=== PATIENT | male | born 2000 | race Caucasian/White ===

== ENCOUNTER 2022-11-21 21:22 | Emergency (ER) | payer BC, SELFPAY ==
--- NOTE | ~2022-11-21 | XR_ITS ---
EXAMINATION: XR chest 1V portable DATE: 11/21/2022 22:05 INDICATION: Dyspnea. Presyncope TECHNIQUE: frontal and lateral views of the chest were obtained. COMPARISON: None FINDINGS: The lungs are clear with no focal airspace opacities, pulmonary edema, pleural effusion or pneumothor ax. The cardiomediastinal silhouette is normal. Visualized bones and soft tissues are unremarkable. IMPRESSION: 1. Normal chest radiograph. Reviewed, dictated and finalized at location A. IMPRESSION: 1. Normal chest radiograph.
[2022-11-21 21:27] VITALS: BP 124/68; PULSE 65; RESP 15; TEMP 36.6; O2SAT 100
[2022-11-21 21:35] VITALS: PULSE 59
--- NOTE | 2022-11-21 21:36 | ECG_ITS ---
Measurements Intervals [place] Rate: 57 P: 73 [place]: 156 QRS: 83 QRSD: 102 T: 70 QT: 387 QTc: 377 Interpretive Statements SINUS BRADYCARDIA WITH MARKED SINUS ARRHYTHMIA NO PREVIOUS ECG AVAILABLE FOR COMPARISON Electronically Signed On 11-22-2022 8:32:10 CDT by Claire Albrecht M.D.
--- NOTE | 2022-11-21 21:36 | ED.SYNCOPE ---
HPI - Syncope General Chief Complaint: Syncope <Christina Payan PA-C - Last Filed: 11/21/22 23:48> Stated Complaint: syncope <Christina Payan PA-C - Last Filed: 11/21/22 23:48> Time Seen by Provider: 11/21/22 21:26 <Christina Payan PA-C - Last Filed: 11/21/22 23:48> History of Present Illness HPI narrative: 22-year-old male reports via EMS for evaluation of a presyncopal episode that occurred prior to arrival. Patient states he was at the [place] [employer] and was approaching the ticket larry to place a bat. States at this time he became lightheaded and his vision went black. States he fell back and was caught by a bystander who lowered him to the floor. Patient reports he did not fully lose consciousness and remembers the entire event. States he saw black for approximately 10 seconds and got his vision back, then tried to stand up and saw black again. Again, he states he did not fully lose consciousness and was aware of the entire event. He denies hitting his head. He states this is never happened to him before. He denies chest pain, nausea or vomiting, diarrhea, abdominal pain, neck pain, back pain or headache, pain anywhere. He states at times it feels like he has to catch his breath, denies cough or congestion. Patient states it was loud in the arena when the episode occurred. He does report decreased water intake the past few days. <Christina Payan PA-C - Last Filed: 11/21/22 23:48> 22-year-old male reports via EMS for evaluation of a presyncopal episode that occurred prior to arrival. Patient states he was [place] the horse [employer] and was approaching the ticket [place] to place a bat. States at this time he became lightheaded and his vision went black. States he fell back and was caught by a bystander who lowered him to the floor. Patient reports he did not fully lose consciousness and remembers the entire event. States he saw black for approximately 10 seconds and got his vision back, then tried to stand up and saw black again. Again, he states he did not fully lose consciousness and was aware of the entire event. He denies hitting his head. He states this is never happened to him before. He denies chest pain, nausea or vomiting, diarrhea, abdominal pain, neck pain, back pain or headache, pain anywhere. He states at times it feels like he has to catch his breath, and he does state that he has had flu like symptoms over the last few days with increased congestion. Patient states it was loud in the arena when the episode occurred. He does report decreased water intake the past few days. <Ro Madrigal MD - Last Filed: 11/22/22 00:12> Related Data Allergies/Adverse Reactions: Allergies Allergy/AdvReac Type Severity Reaction Status Date / Time amoxicillin Allergy Other Verified 11/21/22 21:25 <Christina Payan PA-C - Last Filed: 11/21/22 23:48> Review of Systems Review of Systems: CONSTITUTIONAL: Denies fever, chills EYES: Denies visual changes, redness, or discharge. ENT: Denies rhinorrhea, congestion, sore throat, or otalgia. CARDIOVASCULAR: Denies chest pain, palpitations, or edema. RESPIRATORY: Denies cough or dyspnea. GASTROINTESTINAL: Denies abdominal pain, nausea, vomiting, or diarrhea. GENITOURINARY: Denies dysuria or hematuria. SKIN: Denies rash or itching. MUSCULOSKELETAL: Denies back pain, joint pain, or myalgia. NEUROLOGIC: Denies headache, numbness, dizziness, or weakness. PSYCHIATRIC: Denies anxiety or depression. <Christina Payan PA-C - Last Filed: 11/21/22 23:48> Exam Narrative: GENERAL: Well-appearing, in no acute distress. Patient resting comfortably in exam bed. He is was not conversational. HEAD: Normocephalic EYES: PERRLA, EOMI ENT: Nares clear. Mucous membranes moist. Oropharynx without tonsillar hypertrophy exudate or other lesions. NECK: Supple. CHEST: No respiratory distress. Clear to auscultation, no adventitious breath sounds. HEART: Regular rate a
[2022-11-21 21:47] VITALS: BP 90/42; PULSE 57
[2022-11-21 21:48] VITALS: BP 102/63; PULSE 71
[2022-11-21 21:49] VITALS: BP 96/69; PULSE 72
[2022-11-21] MEDS: SODIUM CHLORIDE 0.9% IV 1,000 ML 999 ML IV CONT (21:51)
[2022-11-21 21:57] LABS: Basophils Percent Auto 0.4 % (0.2-1.2); Eosinophils Absolute Auto 0.1 K/mm3 (0-0.3); Eosinophils Percent Auto 1.5 % (0-4.4); Hematocrit 37.6 % (42.0-52.0); Hemoglobin 13.1 g/dL (14.0-18.0); Immature Granulocyte Absolute 0.02 K/mm3 (0.00-0.031); Immature Granulocyte Percent A 0.3 % (0-0.5); Lymphocytes Absolute Auto 2.62 K/mm3 (0.9-3.2); Lymphocytes Percent Auto 36.7 % (18.3-44.2); Mean Corpuscular HGB Conc 34.8 g/dl (32-36); Mean Corpuscular Hemoglobin 30.4 pg (26-34); Mean Corpuscular Volume 87.2 fl (80-100); Mean Platelet Volume 9.2 fl (7.4-10.4); Monocytes Absolute Auto 0.5 K/mm3 (0.1-0.6); Monocytes Percent Auto 6.9 % (2.6-8.5); Neutrophils Absolute Auto 3.9 K/mm3 (1.3-6.7); Neutrophils Percent Auto 54.2 % (45.5-73.1); Platelet Count Result 216 k/mm3 (150-375); Red Blood Count 4.31 M/mm3 (4.6-6.20); Red Cell Distribution Width 12.1 % (11.5-14.5); White Blood Count 7.1 K/mm3 (4.5-10.0)
[2022-11-21 22:12] LABS: Alanine Aminotransferase 20 U/L (6-50); Albumin Level 3.9 g/dL (3.5-5.1); Alkaline Phosphatase 40 U/L (38-126); Anion Gap 6 mmol/L (8-16); Aspartate Amino Transferase 30 U/L (17-59); Bilirubin,Total 0.9 mg/dL (0.2-1.3); Blood Urea Nitrogen 17 mg/dL (9-20); Calcium 8.6 mg/dL (8.4-10.2); Carbon Dioxide 24 mmol/L (22-30); Chloride 101 mmol/L (98-107); Estimated CRCL calculation 136 ml/min; Estimated Glomerular Filt Rate > 60; Glucose 140 mg/dL (65-110); Potassium 3.8 mmol/L (3.4-5.0); Sodium 131 mmol/L (137-145)
[2022-11-21 22:30] VITALS: BP 106/56; PULSE 59; RESP 14; O2SAT 100
[2022-11-21 23:29] LABS: Appearance Urine Clear (Clear); Bilirubin Urine Negative (Negative); Blood Urine Negative (Negative); Color Urine Yellow (Yellow); Glucose Urine UA Negative (Negative); Ketones Urine Negative (Negative); Leukocyte Esterase Ur Negative LEU/UL (Negative); Nitrate Urine Negative (Negative); Protein Urine Negative (Negative); pH Urine 6.5 (5.0-9.0)
[2022-11-21 23:58] LABS: Add Urine Microscopic? NO
[2022-11-22] MEDS: SODIUM CHLORIDE 0.9% IV 1,000 ML 999 ML IV CONT
[2022-11-22 00:30] VITALS: BP 104/78; PULSE 60; RESP 14; O2SAT 100
[2022-11-22 01:05] VITALS: BP 99/80; PULSE 53; RESP 19; O2SAT 97
[2022-11-22 01:15] VITALS: BP 118/76; PULSE 66; RESP 14; O2SAT 97
== END 2022-11-22 01:15 | disposition home or self-care (01) ==
PROVIDERS: Physician Assistant; Emergency Provider Emergency Medicine
DX: R55 Syncope and collapse (principal); R00.1 Bradycardia, unspecified
CPT/HCPCS: 36415; 71045; 80053; 81003; 85025; 93005; 96360; 96361; 99284; J7030